=== PATIENT | female | born 2000 | race Two or more races ===

== ENCOUNTER 2024-11-01 12:46 | Emergency (ER) | payer MEDICAID, SELFPAY ==
[2024-11-01 12:46] VITALS: BMI 25.7
[2024-11-01 12:55] VITALS: BP 102/67; PULSE 118; RESP 18; TEMP 37.7; O2SAT 96
[2024-11-01] MEDS: DiphenhydrAMINE 25 MG CAPSULE 50 MG PO (13:14)
[2024-11-01] MEDS: DEXAMETHASONE SOD PHOS INJ 10 MG/ML VIAL IM (13:16)
[2024-11-01] MEDS: FAMOTIDINE 20 MG TABLET 40 MG PO (13:19)
--- NOTE | 2024-11-01 14:02 | EDNOTE_ITS ---
ED Allergic Reaction RME/HPI General Chief complaint: Shortness of Breath/Dyspnea Stated complaint: ALLERGIC REACTION, SOB Time Seen by Provider: 11/01/24 13:08 Arrival date/time: 11/01/24 12:46 23-year-old female presents to the emergency department today complaint of allergic reaction patient report similar episodes in the past Limitations: no limitations Related Data Previous Rx's ?Medication ?Instructions ?Recorded amoxicillin 500 mg capsule 500 mg PO BID #20 caps 07/0 06/20 acetaminophen 500 mg capsule 500 mg PO Q6H PRN fever o r pain 02/11/23 #20 caps diphenhydramine HCl 25 mg capsule 50 mg (2 x 25 mg) PO Q8H PRN 02/11/23 (Benadryl) allergic reaction #20 caps diphenhydramine HCl 25 mg capsule 25 mg PO Q8H PRN all ergic symptoms 11/01/24 (Benadryl) #30 caps erythromycin 5 mg/gram (0.5 %) eye 1.25 cm ophthalmic (eye) QID 7 11/01/24 ointment days #3.5 grams prednisone 10 mg tablet 30 mg (3 x 10 mg) PO BID 3 d ays 11/01/24 #18 tabs Allergies Allergy/AdvReac Type Severity Reaction Status Date / Time cat dander Allergy Verified 11/01/24 12:49 grass pollen Allergy Verified 11/01/24 12:49 nut - unspecified Allergy Verified 11/01/24 12:49 Review of Systems Review of Systems Systems Reviewed: All systems reviewed, normal except as documented Constitutional Constitutional: Reports system reviewed and no additional complaints, except as documented, Denies fever(s) and Denies headache(s) Eyes Eyes: Reports system reviewed and no additional complaints, except as documented and Denies blurry vision ENT Ears, Nose, Mouth, and Throat: Reports system reviewed and no additional complaints, except as documented, Denies headache(s), Denies nasal congestion and Denies nasal discharge Cardiovascular Cardiovascular: Reports system reviewed and no additional complaints, except as documented, Denies chest pain and Denies dyspnea Respiratory Respiratory: Reports system reviewed and no additional complaints, except as documented, Denies chest congestion, Denies cough and Denies dyspnea Gastrointestinal Gastrointestinal: Reports system reviewed and no additional complaints, except as documented and Denies abdominal pain Integumentary/Breasts Skin/Breast: Reports system reviewed and no additional complaints, except as documented, Reports erythema, Reports pruritus and Reports rash Neurologic Neurologic: Reports system reviewed and no additional complaints, except as documented, Reports as per HPI and Denies headache(s) Past Medical History Past Medical History CARDIAC: Negative Congestive Heart Failure RESPIRATORY: Negative Chronic Obstructive Pulmonary Disease (COPD) GENITOURINARY: Negative Renal Disease ENDOCRINE: Negative Diabetes Mellitus Type 1 or Diabetes Mellitus Type 2 Social History SMOKING STATUS: Never smoker ED Exam General Limitations: Present no limitations General appearance: Present alert and in no apparent distress Head Head exam: Present atraumatic, normocephalic and normal inspection Eye Eye exam: Present normal appearance, PERRL and EOMI; Absent conjunctival injection ENT ENT exam: Present normal exam, normal oropharynx and mucous membranes moist Neck Neck exam: Present normal inspection, full ROM and trachea midline Chest Chest inspection: Present normal inspection and symmetric chest wall rise Respiratory Respiratory exam: Present normal lung sounds bilaterally; Absent respiratory distress, wheezes, stridor, accessory muscle use or prolonged expiratory phase Cardiovascular Cardiovascular exam: Present regular rate, normal rhythm and normal heart sounds Abdominal Exam Abdominal exam: Present soft and normal bowel sounds Extremities Exam Extremities exam: Present normal inspection and full ROM Back Exam Back exam: Present normal inspection and full ROM Neurological Exam Neurological exam: Present alert, oriented X3, CN II-XII intact, normal gait and reflexes normal; Absent motor sensory deficit Psychiatric Psychiatric exam: Present normal affect and normal mood Skin Skin exam: Present warm, dry and rash Course Quality Measures none Orders Category Date Time Status Dexamethasone Inj [Decadron Inj] Med 11/01/24 13:08 Discontinued 10 mg IM X1 ONE DiphenhydrAMINE [Benadryl] Med 11/01/24 13:08 Discontinued 50 mg PO X1 ONE Famotidine [Pepcid] Med 11/01/24 13:08 Discontinued 40 mg PO X1 ONE Vital Signs Vital signs: Vital Signs Temperature 99.8 F 11/01/24 12:55 Pulse Rate 118 H 11/01/24 12:55 Respiratory Rate 18 11/01/24 12:55 Blood Pressure 102/67 11/01/24 12:55 Pulse Oximetry (%) 96 11/01/24 12:55 Oxygen Delivery Method Room Air 11/01/24 12:55 O2 saturation 96% on room air within limits Allergic Reaction MDM Narrative MDM Narrative:: 23-year-old female presents to the emergency department today complaint of a llergic reaction patient report similar episodes in the past. Patient reports no chance of On exam patient has generalized rash and swelling to her face patient reports sore throat as well On exam patient appears to be having allergic reaction no evidence of anaphylaxis Patient medicated here patient reports symptoms have significantly improved patient swelling is decreased Patient reports no difficulties with swallowing or breathing Patient discharged home in no distress to follow-up with primary care doctor in the next 24 to 48 hours and for any worsening symptoms to return to the ER immediately Patient data External records reviewed:: [facility] previous records Clinical information provided by:: patient Social determinants that could affect healthcare access:: none Patient has the following chronic illnesses:: None How is presenting disease/condition affected by chronic disease/condition?: no chronic disease Evaluation data The following diagnostics were reviewed and interpreted by me:: other (specify) (N/A) Lab and/or radiology exams considered but not ordered:: N/A Interpretation Summary: N/A Medications / Prescriptions Medications or Prescriptions considered but not ordered:: Given Medication administrations:: Medication Administration History Discontinued Medications Dexamethasone Sodium Phosphate (Dexamethasone Sod Phos Inj 10 Mg/Ml Vial) 10 mg IM X1 ONE Stop: 11/01/24 13:09 Last Admin: 11/01/24 13:16 Dose: 10 mg Documented By: ESTELA Diphenhydramine HCl (Diphenhydramine 25 Mg Capsule) 50 mg PO X1 ONE Stop: 11/01/24 13:09 Last Admin: 11/01/24 13:14 Dose: 50 mg Documented By: ESTELA Famotidine (Famotidine 20 Mg Tablet) 40 mg PO X1 ONE Stop: 11/01/24 13:09 Last Admin: 11/01/24 13:19 Dose: 40 mg Documented By: ESTELA Given Consultations Consultation(s) initiated? (list below): No Diagnosis Differential Diagnosis allergic reaction: anaphylaxis, allergic reaction and angioedema Most likely diagnosis given after review of the tests above:: Allergic reaction Admission Indicated Admission indicated?: not indicated Admission Request Was there a request for admission?: No Disposition Plan Disposition Plan: Discharge Discharge Attestation Discharge Attestation: The patient and all family members were given an opportunity to ask questions and understood the discharge instructions. Discharge instructions specifically effects, indications for sooner follow up or return to the emergency department, and the expected course of current diagnosis. Patient condition: Stable Discharge Plan Plan Patient Disposition: HOME (Self Care) Disposition Comment: Stable Prescriptions/Referrals Prescriptions/Med Rec: New erythromycin 5 mg/gram (0.5 %) ointment 1.25 cm OPHTHALMIC QID 7 Days Qty: 3.5 0RF diphenhydramine HCl [Benadryl] 25 mg capsule 25 mg PO Q8H PRN (Reason: allergic symptoms) Qty: 30 0RF prednisone 10 mg tablet 30 mg PO BID 3 Days Qty: 18 0RF No Action amoxicillin 500 mg capsule 500 mg PO BID Qty: 20 0RF acetaminophen 500 mg capsule 500 mg PO Q6H PRN (Reason: fever or pain) Qty: 20 0RF diphenhydramine HCl [Benadryl] 25 mg capsule 50 mg PO Q8H PRN (Reason: allergic reaction) Qty: 20 0RF Referrals: Albert Johnson MD [Primary Care Provider] - 11/03/24 Problem List Clinical Impression: Allergic reaction Patient/Caregiver Discharge Instructions Education Materials: ED Medicine Reaction: Allergic Additional Instructions: Please follow up with your primary care doctor in the next 24-48hrs for any worsening symptoms return here immediately Print Language: Citizen Of The [place] Stand Alone Forms: Lissett Award Info., Patient Portal Info Letter PA/CONFORMAL PAD FORMER Supervising Physician PA/SHRUTHI Supervising Physician: Dr Newberry
== END 2024-11-01 14:07 | disposition home or self-care (01) ==
PROVIDERS: Emergency Provider Emergency Medicine; PCP Family Medicine
DX: T78.40XA Allergy, unspecified, initial encounter (principal)
CPT/HCPCS: 96372; 99283; J1100; A9270